=== PATIENT | male | born 1935 | race Asian ===

== ENCOUNTER → 2025-06-05 | Day surgery (SDC) | payer MEDICARE, OTHER ==
[~2025-06-05] VITALS: Ht 157.5 cm; Wt 63.2 kg
[~2025-06-05] MED LIST: ALBUTEROL SULFATE 2.5 MG/0.5 ML NEB SOLUTION NEB ONE; ASPI-1450 PO; ATOR10TA PO; BENZOCAINE 20% 50 MCG/SPRAY 57 GM ONE; CLOP75TA83 PO; FentaNYL CITRATE PF 100 MCG/2 ML VIAL ONE; LIDOCAINE 2% 11 ML JELLY ONE; LIDOCAINE 4% 50 ML SOLUTION ONE; LOSA-381 PO; METO25 PO; MIDAZOLAM HCL 2 MG/2 ML VIAL ONE; SODIUM CHLORIDE 0.9% 1,000 ML ONE
[2025-06-05] MEDS: SODIUM CHLORIDE 0.9% 1,000 ML IV ONE (08:08)
[2025-06-05 09:30] VITALS: PULSE 60; RESP 16; O2SAT 100
== END | disposition still patient (30) ==
LOC: SDS 06:32
PROVIDERS: ATTEND Internal Medicine Critical Care Medicine
DX: R05.3 Chronic cough (principal); Z79.899 Other long term (current) drug therapy; J38.4 Edema of larynx; B37.0 Candidal stomatitis; F17.210 Nicotine dependence, cigarettes, uncomplicated; Z79.01 Long term (current) use of anticoagulants; Z98.890 Other specified postprocedural states; Z79.82 Long term (current) use of aspirin
CPT/HCPCS: 31623; 93005; 87206; 87101; 87220; 87070; 88108; 31624; 94640; 71045; 87015; J3010; J2250; J2919; J7030; J7613; Z7610